=== PATIENT | male | born 1960 | race Hispanic/Latino ===

== ENCOUNTER 2018-10-13 11:10 | Emergency (ER) | payer SELFPAY ==
[2018-10-13] MEDS ORDERED: TETANUS/DIPHTHERIA TOXOID [ADULT] 0.5 ML VIAL IM ONE (11:58)
[2018-10-13] MEDS ORDERED: ACETAMINOPHEN 325 MG TAB ONE (11:58)
[2018-10-13] MEDS ORDERED: OCTYL 2-CYANOACRYLATE 1 EACH TP ONE (12:21)
== END 2018-10-13 13:24 | disposition home or self-care (01) ==
LOC: EDH 11:10
DX: S61.210A Laceration without foreign body of right index finger without damage to nail, initial encounter (principal); Z72.0 Tobacco use; W23.0XXA Caught, crushed, jammed, or pinched between moving objects, initial encounter; Y93.89 Activity, other specified; Y92.89 Other specified places as the place of occurrence of the external cause; Y99.8 Other external cause status
CPT/HCPCS: 12001; 73140; 90471; 90714